=== PATIENT | female | born 1975 | race African-American/Black ===

== ENCOUNTER 2020-03-19 22:41 | Emergency (ER) | payer OTHER ==
[~2020-03-19] VITALS: Ht 154.9 cm; Wt 70.0 kg
--- NOTE | 2020-03-19 23:09 | PHYS DOC ---
General Adult EDM: Chief Complaint: SYNCOPE HPI: HPI: The history was obtained from the patient. Patient is a 45-year-old female with PMH daily alcohol use, hypertension who presents with a chief complaint of syncope. Patient states just prior to arrival she had a syncopal event. States she was standing up and took a couple steps and then collapsed. She states she struck her head against the wall. She states she has had near syncopal events intermittently over the past several months. She does state that she drinks 6-5 alcoholic beverages daily. She notes marijuana usage. Denies any other drug usage. States that she has a history of stress-induced heart attack approximate ly 1 year ago. She states she did have a heart catheterization but no stents were placed. She denies any history of heart failure. She denies any chest pain or shortness of breath currently or prior to falling. Denies any feelings of irregular rapid heartbeats. Denies fevers or cough. Denies back pain. States she does not take blood thinners except for aspirin. States she thinks that her lightheadedness is due to taking her lisinopril daily. Has not followed up with cardiology recently. No other complaints. Patient denies any history of immobilization greater than 48 hours, recent hospitalizations, recent surgery, recent trauma, , oral contraceptive usage, hormone replacement therapy, air travel greater than 8 hours, recent infectious disease, or general deterioration of their overall condition. Review of Systems: Review of Systems: Constitutional: Denies fever or chills. [] Eyes: Denies change in visual acuity. [] HENT: Denies nasal congestion or sore throat. [] Respiratory: Denies cough or shortness of breath. [] Cardiovascular: Positive for syncope GI: Denies abdominal pain, nausea, vomiting, bloody stools or diarrhea. [] : Denies dysuria. [] Musculoskeletal: Denies back pain or joint pain. [] Integument: Denies rash. [] Neurologic: Denies headache, focal weakness or sensory changes. [] Endocrine: Denies polyuria or polydipsia. [] Lymphatic: Denies swollen glands. [] Psychiatric: Denies depression or anxiety. [] Heart Score: Risk Factors: Risk Factors: DM, Current or recent (<one month) smoker, HTN, HLP, family history of CAD, obesity. Risk Scores: Score 0 - 3: 2.5% MACE over next 6 weeks - Discharge Home Score 4 - 6: 20.3% MACE over next 6 weeks - Admit for Clinical Observation Score 7 - 10: 72.7% MACE over next 6 weeks - Early Invasive Strategies Physical Exam: PE: Constitutional: Well developed, well nourished, no acute distress, non-toxic appearance. [] HENT: Normocephalic, atraumatic, bilateral external ears normal, oropharynx moist, no oral exudates, nose normal. 2 x 2 centimeter area of swelling and hematoma development over the right forehead. [] Eyes: PERRLA, EOMI, conjunctiva normal, no discharge. [] Neck: Normal range of motion, no tenderness, supple, no stridor. [] Cardiovascular:Heart rate regular rhythm, no murmur [] Lungs & Thorax: Bilateral breath sounds clear to auscultation [] Abdomen: soft, no tenderness, no masses, no pulsatile masses. [] Skin: Warm, dry, no erythema, no rash. [] Back: No tenderness, no CVA tenderness. [] Extremities: No tenderness, no cyanosis, no clubbing, ROM intact, no edema. [] Neurologic: alert with intact cognitive function. No aphasia, dysarthria, or neglect. GCS 15. Pupils 3 mm briskly reactive b/l. No APD present. Cranial nerves 2-12 grossly intact; no facial asymmetry present, tongue midline, shoulder shrugging strength intact. Strength 5/5 and symmetric throughout. Light touch sensation intact throughout. Cerebellar testing appropriate without evidence of dysdiadochokinesia. DTR's 2+ in all 4 extremities. Negative pronator drift bilaterally. Gait normal Psychologic: Affect normal, judgement normal, mood normal. [] Current Patient Data: Labs: Laboratory Tests Test 03/19/20 23:14 White Blood Count 9.5 x10^3/uL Red Blood Count 3.81 x10^6/uL Hemoglobin 9.7 g/dL Hematocrit 28.6 % Mean Corpuscular Volume 75 fL Mean Corpuscular Hemoglobin 26 pg Mean Corpuscular Hemoglobin Concent 34 g/dL Red Cell Distribution Width 18.8 % Platelet Count 624 x10^3/uL Neutrophils (%) (Auto) 56 % Lymphocytes (%) (Auto) 31 % Monocytes (%) (Auto) 9 % Eosinophils (%) (Auto) 4 % Basophils (%) (Auto) 1 % Neutrophils # (Auto) 5.3 x10^3/uL Lymphocytes # (Auto) 2.9 x10^3/uL Monocytes # (Auto) 0.8 x10^3/uL Eosinophils # (Auto) 0.3 x10^3/uL Basophils # (Auto) 0.1 x10^3/uL Prothrombin Time 12.3 SEC Prothromb Time International Ratio 1.0 Sodium Level 139 mmol/L Potassium Level 3.2 mmol/L Chloride Level 102 mmol/L Carbon Dioxide Level 23 mmol/L Anion Gap 14 Blood Urea Nitrogen 8 mg/dL Creatinine 0.7 mg/dL Estimated GFR (Cockcroft-Gault) 108.5 Glucose Level 80 mg/dL Calcium Level 9.0 mg/dL Total Bilirubin 0.4 mg/dL Direct Bilirubin 0.1 mg/dL Aspartate Amino Transf (AST/SGOT) 28 U/L Alanine Aminotransferase (ALT/SGPT) 33 U/L Alkaline Phosphatase 60 U/L Troponin I Quantitative < 0.017 ng/mL Total Protein 7.7 g/dL Albumin 3.7 g/dL Lipase 185 U/L Vital Signs: Vital Signs Date Time Temp Pulse Resp B/P (MAP) Pulse Ox O2 Delivery O2 Flow Rate FiO2 03/19/20 22:53 98.4 80 18 119/68 (85) 98 Room Air 98.4 EKG: EKG: EKG consistent with normal sinus rhythm. Ventricular rate of 80 bpm. Nada normal. Intervals normal. Flipped T waves noted in lead III. No acute ischemic changes noted. [] Radiology/Procedures: Radiology/Procedures: [facility] [address] [place] [address] IMAGING REPORT Signed PATIENT: ROSANGELA VENTURA ACCOUNT: [id number] : 1975 LOCATION: ER AGE: 45 SEX: F EXAM STATUS: PRE ER ORD. PHYSICIAN: ISAEL EUGENE DO REASON: syncope PROCEDURE: CHEST AP ONLY INDICATION: Reason: syncope / Spl. Instructions: / History: COMPARISON: None. FINDINGS: Single view of chest obtained. No focal airspace consolidation. Cardiomediastinal contour unremarkable. No acute osseous abnormality. IMPRESSION: * No focal airspace consolidation or edema. Electronically signed by: Jo Ann Reza MD (03/19/2020 11:32 PM) [id number] DICTATED and SIGNED BY: JO ANN REZA MD DATE: 03/19/20 2332 [facility] [address] [place] [address] IMAGING REPORT Signed PATIENT: ROSANGELA VENTURA ACCOUNT: [id number] : 1975 LOCATION: ER AGE: 45 SEX: F EXAM STATUS: PRE ER ORD. PHYSICIAN: ISAEL EUGENE DO REASON: syncope and fall PROCEDURE: CT HEAD AND CERVICAL SPINE WO INDICATION: Reason: syncope and fall / Spl. Instructions: / History: COMPARISON: None. TECHNIQUE: Axial CT images obtained through the head and cervical spine without intravenous contrast. Coronal and sagittal reformats processed of cervical spine. One or more of the following individualized dose reduction techniques were utilized for this examination: 1. Automated exposure control; 2. Adjustment of the mA and/or kV according to patient size; 3. Use of iterative reconstruction technique. FINDINGS: Head: No intracranial hemorrhage. No midline shift. Basal cisterns patents. Ventricles and sulci are within normal limits. No acute osseous abnormality. Orbits and paranasal sinuses unremarkable. Cervical: No definite acute fracture. No dislocation. No evidence of perivertebral hematoma .Mildly enlarged lymph node within the submandibular region. IMPRESSION: * No acute intracranial hemorrhage. * Right frontal scalp cephalohematoma. * There are some scattered foci of low density within the white matter. Nonspecific but can be sequela of chronic small vessel ischemic disease or migraine. * Degenerative changes of the cervical spine with multilevel central canal and neural foraminal stenosis from disc protrusions and osteophyte formation at vertebral body endplates as well as uncovertebral and facet hypertrophy. This is more than typically seen for the patient's age. No definite acute fracture or dislocation. Electronically signed by: Jo Ann Reza MD (03/19/2020 11:48 PM) [id number] DICTATED and SIGNED BY: JO ANN REZA MD DATE: 03/19/20 2348 [] Course & Med Decision Making: Course & Med Decision Making Pertinent Labs and Imaging studies reviewed. (See chart for details) [] Patient is a 45-year-old female presents with chief complaint of syncopal event. Initial vital signs unremarkable. EKG without ischemic changes. Labs were obtained and were grossly unremarkable. Troponin negative. PERC negative. CT head imaging was obtained reveals a small cephalohematoma. No other acute abnormalities appreciated. On repeat examination patient states she is feeling at her baseline. I did discuss the possibility of hospitalization for further syncopal work-up versus close outpatient follow-up. She is electing for outpatient follow-up. I do feel overall this is reasonable. Her hemoglobin level 9.7 she states is consistent with her baseline. Her syncope was related to her anemia. Strict return precautions were discussed and understood. I did explain that we cannot fully exclude life-threatening causes of her syncope including but not limited to dysrhythmia. She did express understanding of still like to follow-up with her primary care physician. She was instructed to follow-up with his primary care physician in the next 1 to 2 days. She is stable for discharge home. Dragon Disclaimer: Dragon Disclaimer: This electronic medical record was generated, in whole or in part, using a voice recognition dictation system. Departure Departure Impression: Primary Impression: Syncope Qualified Codes: R55 - Syncope and collapse Additional Impressions: Anemia Qualified Codes: D64.9 - Anemia, unspecified Cephalohematoma Disposition: 01 HOME, SELF-CARE Condition: STABLE Referrals: AMBROSIO PERERA DO (PCP) Patient Instructions: Cephalohematoma, Syncope Additional Instructions: Please follow-up with your primary care physician in the next 1 to 2 days. Justicifation of Admission Dx: Justifications for Admission: Justification of Admission Dx: N/A ISAEL EUGENE DO Mar 19, 2020 23:09
[2020-03-19 23:24] LABS: BASO # 0.1 x10^3/uL (0.0-0.2); BASO % 1 % (0-3); EOS # 0.3 x10^3/uL (0.0-0.7); EOS % 4 % (0-3); HEMATOCRIT 28.6 % (36.0-47.0); HEMOGLOBIN 9.7 g/dL (12.0-15.5); LYMPH # 2.9 x10^3/uL (1.0-4.8); LYMPH % 31 % (24-48); MEAN CORPUSCULAR HEMOGLOBIN 26 pg (25-35); MEAN CORPUSCULAR HGB CONC 34 g/dL (31-37); MEAN CORPUSCULAR VOLUME 75 fL (79-100); MONO # 0.8 x10^3/uL (0.0-1.1); MONO % 9 % (0-9); NEUT # 5.3 x10^3/uL (1.8-7.7); NEUT % 56 % (31-73); PLATELET COUNT 624 x10^3/uL (140-400); RED BLOOD COUNT 3.81 x10^6/uL (3.50-5.40); RED CELL DISTRIBUTION WIDTH 18.8 % (11.5-14.5); WHITE BLOOD COUNT 9.5 x10^3/uL (4.0-11.0)
[2020-03-19 23:35] LABS: CREATININE 0.7 mg/dL (0.6-1.0); GFR 108.5; POTASSIUM 3.2 mmol/L (3.5-5.1)
--- NOTE | 2020-03-19 23:35 | RAD ---
INDICATION: Reason: syncope / Spl. Instructions: / History: COMPARISON: None. FINDINGS: Single view of chest obtained. No focal airspace consolidation. Cardiomediastinal contour unremarkable. No acute osseous abnormality. IMPRESSION: * No focal airspace consolidation or edema. Electronically signed by: Riaz Landrum MD (03/19/2020 11:32 PM) [id number]
[2020-03-19 23:40] LABS: ALBUMIN 3.7 g/dL (3.4-5.0); DIRECT BILIRUBIN 0.1 mg/dL (0.0-0.2); TOTAL BILIRUBIN 0.4 mg/dL (0.2-1.0); TOTAL PROTEIN 7.7 g/dL (6.4-8.2)
[2020-03-19 23:50] LABS: PROTHROMBIN TIME PATIENT 12.3 SEC (11.7-14.0)
--- NOTE | 2020-03-19 23:51 | RAD ---
INDICATION: Reason: syncope and fall / Spl. Instructions: / History: COMPARISON: None. TECHNIQUE: Axial CT images obtained through the head and cervical spine without intravenous contrast. Coronal and sagittal reformats processed of cervical spine. One or more of the following individualized dose reduction techniques were utilized for this examination: 1. Automated exposure control; 2. Adjustment of the mA and/or kV according to patient size; 3. Use of iterative reconstruction technique. FINDINGS: Head: No intracranial hemorrhage. No midline shift. Basal cisterns patents. Ventricles and sulci are within normal limits. No acute osseous abnormality. Orbits and paranasal sinuses unremarkable. Cervical: No definite acute fracture. No dislocation. No evidence of perivertebral hematoma .Mildly enlarged lymph node within the submandibular region. IMPRESSION: * No acute intracranial hemorrhage. * Right frontal scalp cephalohematoma. * There are some scattered foci of low density within the white matter. Nonspecific but can be sequela of chronic small vessel ischemic disease or migraine. * Degenerative changes of the cervical spine with multilevel central canal and neural foraminal stenosis from disc protrusions and osteophyte formation at vertebral body endplates as well as uncovertebral and facet hypertrophy. This is more than typically seen for the patient's age. No definite acute fracture or dislocation. Electronically signed by: Riaz Landrum MD (03/19/2020 11:48 PM) [id number]
[2020-03-20 00:05] VITALS: BP 109/64
--- NOTE | 2020-03-20 04:17 | EKG ---
[facility] [address] [place] [address] Test Date: 2020-03-19 Test Time: 22:59:57 Pat Name: ROSANGELA VENTURA Department: Room: Gender: F [employer]ting [employer] Operator: : 1975 Requested By: ISAEL EUGENE Order Number: [id number] Reading MD: Measurements Intervals [place] Rate: 80 P: 45 PA: 198 QRS: 23 QRSD: 74 T: 10 QT: 392 QTc: 456 Interpretive Statements SINUS RHYTHM NO SPECIFIC ECG ABNORMALITIES RI6.01 No previous ECG available for comparison
== END 2020-03-20 00:34 | disposition home or self-care (01) ==
LOC: ER 22:41
DX: S06.2X0A Diffuse traumatic brain injury without loss of consciousness, initial encounter (principal); R55 Syncope and collapse; D64.9 Anemia, unspecified; W18.39XA Other fall on same level, initial encounter; Y93.89 Activity, other specified; Y92.89 Other specified places as the place of occurrence of the external cause; Y99.8 Other external cause status
CPT/HCPCS: 36415; 70450; 71045; 72125; 80048; 80076; 83690; 84484; 85025; 85610; 93005; 99285